=== PATIENT | female | born 1985 | race Caucasian/White ===

== ENCOUNTER 2018-04-08 21:14 | Emergency (ER) | payer BC ==
[2018-04-08 21:41] VITALS: RESP 16
[2018-04-08] MEDS ORDERED: LIDOCAINE 1% INJ 10MG/ML (20 ML MDV) SQ ONE (23:06)
--- NOTE | 2018-04-08 23:13 | ED ---
Female Urogenital HPI - General Chief complaint: Urogenital Stated complaint: Cyst, female Time Seen by Provider: 04/08/18 22:33 Source: patient Mode of arrival: ambulatory Limitations: no limitations - History of Present Illness Initial comments: 32-year-old female patient presents to the emergency department today for evaluation of swelling and pain to the right labia. Patient states that she has had Bartholin's cyst multiple times in the past mostly with spontaneous rupture however she did have to have it incised and drained one point. Patient states that she has had a cyst the size of a strawberry there for the last couple of years. Patient states that her physicians told her if it wasn't bothering her that they did not need to do anything with it. She states on the she started having some pain and irritation to the area. States she did go to the emergency department was told to follow-up with the air director. Patient states today the area has become significantly more swollen and painful. Patient states the area is red and tender to touch. She denies any fevers or chills with this. She denies any hematuria, dysuria, urinary frequency, urinary urgency. She denies any abnormal vaginal bleeding or discharge. States she is and in a monogamous relationship and has no concern for STDs. Patient denies any recent rash, shortness breath, chest pain, abdominal pain, nausea, vomiting, diarrhea, constipation, back pain, numbness, tingling, dizziness, weakness, headache, visual changes, or any other complaints. Last Menstrual Period: 03/19/18 - Related Data Allergies Allergy/AdvReac Type Severity Reaction Status Date / Time sulfamethoxazole AdvReac Nausea Verified 04/08/18 22:37 [From Bactrim] trimethoprim [From Bactrim] AdvReac Nausea Verified 04/08/18 22:37 Review of Systems ROS Statement: Those systems with pertinent positive or pertinent negative responses have been documented in the HPI. ROS Other: All systems not noted in ROS Statement are negative. Past Medical History Past Medical History: No Reported History History of Any Multi-Drug Resistant Organisms: None Reported Past Surgical History: No Surgical Hx Reported Past Psychological History: No Psychological Hx Reported Smoking Status: Current every day smoker Past Alcohol Use History: Rare Past Drug Use History: None Reported General Exam Limitations: no limitations General appearance: alert, in no apparent distress, other (Physical well- developed, well-nourished adult female patient in no acute distress. Vital signs upon presentation are temperature 98.8F, pulse 98, respirations 16, blood pressure 129/74, pulse ox 98% on room air.) Eye exam: Present: normal appearance, PERRL, EOMI. Absent: scleral icterus, conjunctival injection, periorbital swelling ENT exam: Present: mucous membranes moist Respiratory exam: Present: normal lung sounds bilaterally. Absent: respiratory distress, wheezes, rales, rhonchi, stridor Cardiovascular Exam: Present: regular rate, normal rhythm, normal heart sounds. Absent: systolic murmur, diastolic murmur, rubs, gallop, clicks GI/Abdominal exam: Present: soft, normal bowel sounds. Absent: distended, tenderness, guarding, rebound, rigid External exam: Present: other (Large bartholin cyst, surrounding erythema, tenderness. Roughly 5cm x 7cm. ). Absent: normal external exam Neurological exam: Present: alert, oriented X3, CN II-XII intact Psychiatric exam: Present: normal affect, normal mood Skin exam: Present: warm, dry, intact, normal color. Absent: rash Course Vital Signs 04/08/18 21:36 Temperature 98.8 F Pulse Rate 98 Respiratory 16 Rate Blood Pressure 129/74 O2 Sat by Pulse 98 Oximetry Procedures - Incision & Drainage Consent Obtained: verbal consent Time Out Performed?: Yes Indication: Bartholin abscess Site: vulva/vagina Size (cm): 7 Anesthetic Used: lidocaine 1% Amount (mLs): 6 I&D Cleaning Method: Betadine Scalpel Used: #11 Irrigation Performed?: No I&D Drainage Obtained: Pus, Blood Culture Obtained?: Yes Patient Tolerated Procedure: well, no complications Medical Decision Making - Medical Decision Making 32-year-old female patient presents to the emergency department today for evaluation of increased size and pain to her Bartholin cysts that she's had for the last couple of years. Patient reported increased size since the . She was seen and evaluated at [facility] discharged with antibiotics and instructions to follow-up with gynecology. Physical examination today reveals a 5 cm x 7 cm Bartholin cyst to the right side. No current drainage or erythema. Patient does have some tenderness to palpation. Incision and drainage was performed using lidocaine 1%. I did have output of approximately 200 mL of purulent bloody drainage. Patient tolerated the procedure well. We did insert Word catheter with 6 mL of normal saline instilled. Patient once drain has relief of pain. There is no surrounding cellulitis. Patient did not tolerate Bactrim when she was given a prescription on the . We will probably withhold antibiotics at this time that she does have an appointment with gynecology on April 15. She denied any concern for STDs. We did send a chlamydia and her urine which we will call if cultures positive. We did discuss sitz baths and local care. She is instructed to follow-up with air director she has planned. Return parameters were discussed in detail. She verbalizes understanding and agrees with this plan. Disposition Clinical Impression: Bartholin's gland abscess Disposition: HOME SELF-CARE Condition: Good Instructions: Bartholin Cyst (ED) Additional Instructions: Keep Word catheter in place as long as possible. Do sits baths 10-15 minutes at a time at least 4 times per day. Follow-up with gynecology as you have planned. Return immediately for any new, worsening, or concerning symptoms. Is patient prescribed a controlled substance at d/c from ED?: No Referrals: Rocky Pacheco MD [Primary Care Provider] - 1-2 days Time of Disposition: 23:55
[2018-04-09 00:53] VITALS: BP 124/80; PULSE 92; TEMP 97.9
[2018-04-10 12:31] LABS: C. trachomatis,PCR Negative (Neg,Equiv); Chlamydia trachomatis Source Urine
== END 2018-04-09 01:05 | disposition home or self-care (01) ==
LOC: EC 21:14
DX: N75.1 Abscess of Bartholin's gland (principal); F17.200 Nicotine dependence, unspecified, uncomplicated; Z88.2 Allergy status to sulfonamides
CPT/HCPCS: 81025; 87491; 87070; 87205; 99283; 56420; J2001